=== PATIENT | male | born 1995 | race Native Hawaiian/Other Pacific Islander ===

== ENCOUNTER 2016-09-27 21:06 | Emergency (ER) | payer OTHER ==
[~2016-09-27] VITALS: Ht 172.7 cm; Wt 71.7 kg
[2016-09-27 21:55] VITALS: BP 118/89; TEMP 97.8
== END 2016-09-27 21:56 | disposition home or self-care (01) ==
LOC: ED 21:06
DX: M77.9 Enthesopathy, unspecified (principal); X50.0XXA Overexertion from strenuous movement or load, initial encounter; Y92.511 Restaurant or cafe as the place of occurrence of the external cause
CPT/HCPCS: 99282

== ENCOUNTER 2018-04-28 03:12 | Emergency (ER) | payer OTHER ==
[~2018-04-28] VITALS: Ht 160 cm; Wt 69.9 kg
[2018-04-28 04:31] LABS: PLATELET COUNT 277 K/uL (142-355)
[2018-04-28 04:42] LABS: POTASSIUM 3.8 mmol/L (3.6-5.2)
[2018-04-28 04:57] VITALS: BP 122/59; TEMP 98.3
== END 2018-04-28 04:58 | disposition home or self-care (01) ==
LOC: ED 03:12
DX: K04.7 Periapical abscess without sinus (principal)
CPT/HCPCS: 36415; 80053; 85027; 96372; 99283; J0696; J1885

== ENCOUNTER 2018-08-16 17:56 | Emergency (ER) | payer OTHER ==
[~2018-08-16] VITALS: Ht 160 cm; Wt 69.9 kg
[2018-08-16 18:00] VITALS: BP 93/52; TEMP 98
[2018-08-16 18:21] LABS: PLATELET COUNT 356 K/uL (142-355)
[2018-08-16 18:30] LABS: POTASSIUM 3.8 mmol/L (3.6-5.2)
== END 2018-08-16 19:34 | disposition home or self-care (01) ==
LOC: ED 17:56
PROVIDERS: Family Medicine
DX: K52.9 Noninfective gastroenteritis and colitis, unspecified (principal); J06.9 Acute upper respiratory infection, unspecified
CPT/HCPCS: 36415; 80053; 85027; 96360; 96375; 99284; J2405

== ENCOUNTER 2018-10-27 19:24 | Emergency (ER) | payer OTHER ==
[~2018-10-27] VITALS: Ht 160 cm; Wt 69.9 kg
[2018-10-27 19:52] VITALS: BP 118/76; TEMP 97.9
== END 2018-10-27 21:33 | disposition home or self-care (01) ==
LOC: ED 19:24
PROC: 0HQGXZZ Repair Left Hand Skin, External Approach (ICD-10-PCS; principal; 2018-10-27)
DX: S61.211A Laceration without foreign body of left index finger without damage to nail, initial encounter (principal); W26.8XXA Contact with other sharp object(s), not elsewhere classified, initial encounter
CPT/HCPCS: 90471; 90715; 99283

== ENCOUNTER 2018-12-22 15:48 | Emergency (ER) | payer OTHER ==
[~2018-12-22] VITALS: Ht 177.8 cm; Wt 68.0 kg
[2018-12-22 15:54] VITALS: BP 118/82; TEMP 97.9
== END 2018-12-22 16:51 | disposition home or self-care (01) ==
LOC: ED 15:48
PROC: 0HQNXZZ Repair Left Foot Skin, External Approach (ICD-10-PCS; principal; 2018-12-22)
PROC: 2W3RX1Z Immobilization of Left Lower Leg using Splint (ICD-10-PCS; 2018-12-22)
DX: S91.312A Laceration without foreign body, left foot, initial encounter (principal); W22.8XXA Striking against or struck by other objects, initial encounter
CPT/HCPCS: 99282; 99283

== ENCOUNTER 2019-05-17 21:19 | Emergency (ER) | payer OTHER ==
[~2019-05-17] VITALS: Ht 165.1 cm; Wt 68.0 kg
[2019-05-17 22:54] VITALS: BP 118/59; TEMP 97.9
== END 2019-05-17 22:54 | disposition home or self-care (01) ==
LOC: ED 21:19
DX: M94.0 Chondrocostal junction syndrome [Tietze] (principal)
CPT/HCPCS: 96372; 99282; 99283; J1885

== ENCOUNTER 2020-04-08 11:19 | Emergency (ER) | payer OTHER ==
[~2020-04-08] VITALS: Ht 165.1 cm; Wt 68.0 kg
[2020-04-08 12:12] VITALS: BP 105/77; TEMP 98.3
== END 2020-04-08 12:15 | disposition home or self-care (01) ==
LOC: ED 11:19
DX: K04.7 Periapical abscess without sinus (principal)
CPT/HCPCS: 99282